=== PATIENT | male | born 1980 | race Caucasian/White ===

== ENCOUNTER 2017-10-26 14:43 | Outpatient (CLI) | payer OTHER ==
--- NOTE | 2017-10-26 16:08 | RAD ---
RIGHT SHOULDER 3 VIEWS: HISTORY: Right shoulder pain. COMPARISON: 11/05/16. FINDINGS: Chronic separation of the right shoulder is similar in appearance to the prior study. Heterotopic os sification and dystrophic calcification inferior to the distal clavicle is also stable. Glenohumeral alignment is maintained. 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 No acute osseous abnormalities are otherwise demonstrated. POS: [facility]
== END 2017-10-26 14:44 | disposition home or self-care (01) ==
LOC: RAD-FRANK 14:43
PROVIDERS: ATTEND Nurse Practitioner Family
DX: M25.511 Pain in right shoulder (principal); M61.511 Other ossification of muscle, right shoulder

== ENCOUNTER 2019-01-10 14:15 | Emergency (ER) | payer OTHER, SELFPAY ==
[2019-01-10] MEDS ORDERED: Ketorolac Tromethamine 60 MG/2 ML VIAL ONE (14:52)
[2019-01-10 14:53] LABS: Bilirubin Negative (Negative); Blood, Urine Moderate (Negative); Clarity Cloudy (Clear); Glucose, Urine (Dipstick) Negative (Negative); Leukocyte Large (Negative); Nitrite Negative (Negative); Protein, Urine (Dipstick) 30 mg/dL (Neg-Trace); pH, Urine 6.5 (5.0-9.0)
[2019-01-10 14:54] LABS: Specific Gravity, Urine 1.024 (1.002-1.036)
[2019-01-10 14:56] LABS: Bacteria/HPF 2+ HPF (None Seen); Squamous Epithelial 0-3 HPF (0-3)
[2019-01-10] MEDS ORDERED: cefTRIAXone\\ROCEPHIN 2 GM VIAL ONE (15:23)
[2019-01-10] MEDS ORDERED: Sodium Chloride 0.9% 100 ML ONE (15:24)
[2019-01-10] MEDS ORDERED: Sulfameth/Trimethoprim DS 800-160mg TAB ONE (15:28)
== END 2019-01-10 16:24 | disposition home or self-care (01) ==
LOC: SCSER 14:15
DX: N10 Acute pyelonephritis (principal); F17.210 Nicotine dependence, cigarettes, uncomplicated
CPT/HCPCS: 81003; 81015; 87086; 96365; 96372; J0696; J1885; J3490

== ENCOUNTER 2019-02-02 23:12 | Emergency (ER) | payer OTHER, SELFPAY ==
--- NOTE | 2019-02-03 00:13 | RAD ---
3 views lumbar spine: 02/02/2019 COMPARISON: 11/26/2015 HISTORY: Low back pain, trauma FINDINGS: No fracture or dislocation. Lumbar vertebral body height and alignment is normal. No destini listhesis or retrolisthesis. IMPRESSION: No acute findings.
--- NOTE | 2019-02-03 00:14 | RAD ---
2 views thoracic spine: 02/02/2019 HISTORY: Injury, trauma, pain FINDINGS: Thoracic pedicles are intact on frontal imaging. Lateral exam demonstrates normal vertebral body height and alignment. No acute fracture. Pression: No acute findings.
== END 2019-02-03 00:22 | disposition home or self-care (01) ==
LOC: SCSER 23:12
DX: S39.012A Strain of muscle, fascia and tendon of lower back, initial encounter (principal); S29.012A Strain of muscle and tendon of back wall of thorax, initial encounter; F17.210 Nicotine dependence, cigarettes, uncomplicated; V49.9XXA Car occupant (driver) (passenger) injured in unspecified traffic accident, initial encounter
CPT/HCPCS: 72072; 72100; 99406

== ENCOUNTER 2019-02-13 05:51 | Emergency (ER) | payer OTHER ==
[2019-02-13] MEDS ORDERED: Ketorolac Tromethamine 60 MG/2 ML VIAL ONE (06:39)
== END 2019-02-13 06:59 | disposition home or self-care (01) ==
LOC: SCSER 05:51
DX: M62.830 Muscle spasm of back (principal); F17.210 Nicotine dependence, cigarettes, uncomplicated; V89.2XXA Person injured in unspecified motor-vehicle accident, traffic, initial encounter
CPT/HCPCS: 96372; J1885

== ENCOUNTER 2019-05-10 23:51 | Emergency (ER) | payer OTHER, SELFPAY ==
[2019-05-11] MEDS ORDERED: predniSONE 20 MG TAB ONE (00:05)
[2019-05-11] MEDS ORDERED: diphenhydrAMINE 25 MG CAP ONE (00:22)
== END 2019-05-11 01:25 | disposition home or self-care (01) ==
LOC: SCSER 23:51
DX: L23.7 Allergic contact dermatitis due to plants, except food (principal); F17.210 Nicotine dependence, cigarettes, uncomplicated
CPT/HCPCS: 99282; J7512; Q0163

== ENCOUNTER 2019-11-06 15:51 | Emergency (ER) | payer SELFPAY ==
[2019-11-06] MEDS ORDERED: Ketorolac Tromethamine 30 MG/ML VIAL ONE (17:11)
== END 2019-11-06 19:33 | disposition home or self-care (01) ==
LOC: ERS 15:51
DX: B34.9 Viral infection, unspecified (principal)
CPT/HCPCS: 87081; 87430; 87804; 99284; J1885

== ENCOUNTER 2021-08-12 22:29 | Emergency (ER) | payer SELFPAY ==
[2021-08-12 23:20] LABS: #Basophils 0.1 thou/uL (0.0-0.2); #Eosinphils 0.5 thou/uL (0.0-0.7); #Lymphocytes 2.4 thou/uL (1.20-3.40); #Monocytes 0.8 thou/uL (0.11-0.59); #Neutrophils 3.3 thou/uL (1.40-6.50); %Eosinophils 6.6 % (0.0-10.0); %Lymphocytes 34.5 % (21.0-51.0); %Monocytes 10.6 % (0.0-10.0); %Neutrophils 47.3 % (42.0-75.0); Hemoglobin 16.5 g/dL (14.0-18.0); Mean Corpuscular Hemoglobin 31.8 pg (27.0-31.0); Mean Corpuscular Volume 93.6 fL (78.0-98.0); Mean Platelet Volume 7.2 fL (7.4-10.4); Platelet Count 241 thou/uL (130-400); Red Blood Cell (RBC) Count 5.17 mill/uL (4.70-6.10); White Blood Cell (WBC) Count 7.1 thou/uL (4.8-10.8)
[2021-08-12 23:37] LABS: ALT (SGPT) 36 U/L (8-55); AST (SGOT) 22 U/L (5-34); Albumin 3.9 g/dL (3.5-5.0); Alkaline Phosphatase 94 U/L (40-110); Anion Gap 11 mmol/L (10-20); BUN (Urea Nitrogen) 17 mg/dL (8.9-20.6); Bilirubin, Total 0.4 mg/dL (0.2-1.2); Calc. Creatinine Clearance 0 mL/min (70-130); Calcium 9.7 mg/dL (7.8-10.44); Carbon Dioxide 29 mmol/L (22-29); Chloride 104 mmol/L (98-107); Globulin 2.8 g/dL (2.4-3.5); Glucose 72 mg/dL (70-105); Lipase 54 U/L (8-78); Protein, Total 6.7 g/dL (6.0-8.3); Sodium 140 mmol/L (136-145)
[2021-08-13] MEDS ORDERED: Famotidine 20 MG TAB ONE (00:08)
== END 2021-08-13 00:30 | disposition home or self-care (01) ==
LOC: ERS 22:29
DX: R07.89 Other chest pain (principal); G47.9 Sleep disorder, unspecified; I10 Essential (primary) hypertension
CPT/HCPCS: 36415; 71045; 80053; 83690; 84484; 85025; 93005

== ENCOUNTER 2021-12-27 14:55 | Inpatient (IN) | payer SELFPAY ==
[2021-12-27] MEDS ORDERED: Piperacillin/Tazobactam 3.375 GM VIAL ONE (17:18)
[2021-12-27] MEDS ORDERED: Ketorolac Tromethamine 30 MG/ML VIAL ONE (17:18)
[2021-12-27] MEDS ORDERED: Ondansetron PF 4 MG/2 ML Vial ONE (17:32)
[2021-12-27 17:40] LABS: #Eosinphils 0.4 thou/uL (0.0-0.7); #Lymphocytes 1.3 thou/uL (1.20-3.40); #Monocytes 0.8 thou/uL (0.11-0.59); #Neutrophils 7.7 thou/uL (1.40-6.50); %Basophils 0.4 % (0.0-1.0); %Eosinophils 4.1 % (0.0-10.0); %Monocytes 7.6 % (0.0-10.0); %Neutrophils 74.9 % (42.0-75.0); Hemoglobin 16.4 g/dL (14.0-18.0); Mean Corpuscular HGB CONC 33.4 g/dL (32.0-36.0); Mean Corpuscular Hemoglobin 31.1 pg (27.0-31.0); Mean Corpuscular Volume 93.1 fL (78.0-98.0); Mean Platelet Volume 7.4 fL (7.4-10.4); Platelet Count 223 thou/uL (130-400); RBC Distribution Width 11.9 % (11.5-14.5); Red Blood Cell (RBC) Count 5.26 mill/uL (4.70-6.10); White Blood Cell (WBC) Count 10.2 thou/uL (4.8-10.8)
[2021-12-27 18:01] LABS: ALT (SGPT) 31 U/L (8-55); AST (SGOT) 19 U/L (5-34); Alkaline Phosphatase 79 U/L (40-110); Anion Gap 10 mmol/L (10-20); BUN (Urea Nitrogen) 18 mg/dL (8.9-20.6); Bilirubin, Total 0.8 mg/dL (0.2-1.2); Calc. Creatinine Clearance 0 mL/min (70-130); Calcium 9.2 mg/dL (7.8-10.44); Carbon Dioxide 28 mmol/L (22-29); Chloride 105 mmol/L (98-107); Glucose 83 mg/dL (70-105); Potassium 4.3 mmol/L (3.5-5.1); Sodium 139 mmol/L (136-145)
[2021-12-27] MEDS ORDERED: Morphine 4 MG/ML VIAL ONE ×2 (18:09→18:55)
[2021-12-27] MEDS ORDERED: VANCOMYCIN 2 GRAM/400 ML BAG 2 GM in Premix Bag 1 BAG IVPB SCH (18:15)
[2021-12-27 19:31] LABS: SARS-CoV-2 NAA Rapid Test Not Detected (NotDetected)
[2021-12-27] MEDS ORDERED: Aripiprazole 2 MG TAB PO SCH (19:45)
[2021-12-27] MEDS: hydrOXYzine 10 MG TAB PO SCH (22:28)
[2021-12-27] MEDS: Piperacillin/Tazobactam 3.375 GM in Sodium Chloride 0.9% 100 ML IVPB SCH (22:29)
[2021-12-27] MEDS ORDERED: Ondansetron PF 4 MG/2 ML Vial IVP PRN (22:30)
[2021-12-27] MEDS ORDERED: Ondansetron ODT 4 MG TAB SL PRN (22:30)
[2021-12-27] MEDS ORDERED: Acetaminophen 325 MG TAB PO PRN (22:30)
[2021-12-27] MEDS: Dextrose 5 % And 0.9 % NaCl 1,000 ML IV SCH (22:33)
[2021-12-27 23:10] VITALS: BMI 30.7
[2021-12-28] MEDS: Morphine 4 MG/ML VIAL SLOW IVP PRN ×2 (02:09→05:40)
[2021-12-28] MEDS: Piperacillin/Tazobactam 3.375 GM in Sodium Chloride 0.9% 100 ML IVPB SCH (05:40)
[2021-12-28] MEDS: Dextrose 5 % And 0.9 % NaCl 1,000 ML IV SCH ×2 (05:59→16:10)
[2021-12-28] MEDS ORDERED: Fentanyl 100 MCG/2 ML VIAL ONE ×2 (06:44→09:03)
[2021-12-28] MEDS ORDERED: Bacitracin Zinc Ointment 30 gm TUBE ONE (07:03)
[2021-12-28] MEDS ORDERED: Bupivacaine PF 0.5% 30 ML VIAL ONE (07:03)
[2021-12-28] MEDS ORDERED: Neomycin-Polymyxin 1 ML AMP ONE (07:03)
[2021-12-28] MEDS ORDERED: Famotidine/PF 20 mg/2ml Vial ONE (07:52)
[2021-12-28] MEDS ORDERED: Dexamethasone 20 MG/5 ML VIAL ONE (07:55)
[2021-12-28] MEDS ORDERED: PROPOFOL 200 MG/20 ML VIAL ONE (07:55)
[2021-12-28] MEDS ORDERED: Ondansetron PF 4 MG/2 ML Vial ONE (07:55)
[2021-12-28] MEDS ORDERED: PHENYLEPHRINE-NS 100 MCG/ML 10 ML SYRINGE ONE (07:55)
[2021-12-28] MEDS ORDERED: Lidocaine 1% PF 5 ML VIAL ONE (07:55)
[2021-12-28] MEDS ORDERED: Ondansetron HCl/PF 4 MG/2 ML Vial IVP PRN (08:50)
[2021-12-28] MEDS ORDERED: HYDROmorphone 2 MG/ML VIAL SLOW IVP PRN (08:50)
[2021-12-28] MEDS ORDERED: Promethazine HCl 25 MG/ML VIAL IM PRN (08:50)
[2021-12-28] MEDS ORDERED: Promethazine HCl 25 MG/ML VIAL IVPB PRN (08:50)
[2021-12-28] MEDS ORDERED: hydrOXYzine 25 MG TAB PO PRN (09:03)
[2021-12-28] MEDS ORDERED: Meperidine HCl/PF 25 MG/ML VIAL IM PRN (09:04)
[2021-12-28] MEDS: hydrOXYzine 10 MG TAB PO SCH ×2 (10:21→21:16)
[2021-12-28] MEDS: Vancomycin 1 GM in Premix Bag 1 BAG IVPB SCH (10:45)
[2021-12-28] MEDS: GENTAMICIN SULFATE IJ SCH (13:39)
[2021-12-28] MEDS: ADMIXTURE FEE IJ SCH (13:39)
[2021-12-28] MEDS: Gabapentin 100 MG CAP PO SCH ×2 (13:40→20:59)
[2021-12-28] MEDS ORDERED: Gentamicin 80 MG/2 ML VIAL IM SCH (14:00)
[2021-12-28] MEDS: Bupropion 100 MG SR TAB PO SCH (20:59)
[2021-12-28] MEDS: Aripiprazole 2 MG TAB PO SCH (21:01)
[2021-12-28] MEDS: Ketorolac Tromethamine 30 MG/ML VIAL IVP PRN (21:08)
[2021-12-28] MEDS: Gentamicin Sulfate 80 MG in Premix Bag 1 BAG IVPB SCH (23:41)
[2021-12-29] MEDS: Vancomycin 1 GM in Premix Bag 1 BAG IVPB SCH ×3 (00:30→22:46)
[2021-12-29] MEDS: ADMIXTURE FEE IJ SCH (01:43)
[2021-12-29] MEDS: GENTAMICIN SULFATE IJ SCH (01:43)
[2021-12-29] MEDS: Dextrose 5 % And 0.9 % NaCl 1,000 ML IV SCH ×3 (02:51→22:20)
[2021-12-29] MEDS: Gabapentin 100 MG CAP PO SCH ×3 (08:43→20:49)
[2021-12-29] MEDS: Gentamicin Sulfate 80 MG in Premix Bag 1 BAG IVPB SCH ×2 (08:44→15:28)
[2021-12-29] MEDS: Bupropion 100 MG SR TAB PO SCH ×2 (08:44→20:49)
[2021-12-29] MEDS: hydrOXYzine 10 MG TAB PO SCH ×2 (08:52→20:49)
[2021-12-29] MEDS: Ketorolac Tromethamine 30 MG/ML VIAL IVP PRN ×2 (15:28→21:05)
[2021-12-29] MEDS: Aripiprazole 2 MG TAB PO SCH (20:49)
[2021-12-30] MEDS: Gentamicin Sulfate 80 MG in Premix Bag 1 BAG IVPB SCH ×3 (01:24→14:39)
[2021-12-30 08:02] LABS: #Basophils 0.1 thou/uL (0.0-0.2); #Eosinphils 0.3 thou/uL (0.0-0.7); #Lymphocytes 1.5 thou/uL (1.20-3.40); #Monocytes 0.6 thou/uL (0.11-0.59); #Neutrophils 8.7 thou/uL (1.40-6.50); %Basophils 0.7 % (0.0-1.0); %Lymphocytes 13.1 % (21.0-51.0); %Neutrophils 78.2 % (42.0-75.0); Hemoglobin 14.8 g/dL (14.0-18.0); Mean Corpuscular HGB CONC 34.2 g/dL (32.0-36.0); Mean Corpuscular Hemoglobin 32.5 pg (27.0-31.0); Mean Corpuscular Volume 94.9 fL (78.0-98.0); Mean Platelet Volume 7.2 fL (7.4-10.4); Platelet Count 203 thou/uL (130-400); RBC Distribution Width 11.7 % (11.5-14.5); Red Blood Cell (RBC) Count 4.57 mill/uL (4.70-6.10); White Blood Cell (WBC) Count 11.1 thou/uL (4.8-10.8)
[2021-12-30] MEDS: Bupropion 100 MG SR TAB PO SCH ×2 (08:20→20:11)
[2021-12-30] MEDS: Gabapentin 100 MG CAP PO SCH ×3 (08:20→20:11)
[2021-12-30] MEDS: hydrOXYzine 10 MG TAB PO SCH ×2 (08:25→20:11)
[2021-12-30] MEDS: Dextrose 5 % And 0.9 % NaCl 1,000 ML IV SCH ×2 (08:27→17:12)
[2021-12-30] MEDS: Vancomycin 1 GM in Premix Bag 1 BAG IVPB SCH ×2 (11:28→23:17)
[2021-12-30] MEDS: Ketorolac Tromethamine 30 MG/ML VIAL IVP PRN (11:28)
[2021-12-30] MEDS: Aripiprazole 2 MG TAB PO SCH (20:12)
[2021-12-30] MEDS: Morphine 4 MG/ML VIAL SLOW IVP PRN (21:26)
[2021-12-30] MEDS: Ketorolac Tromethamine 30 MG/ML VIAL IVP SCH (23:16)
[2021-12-31] MEDS: Gentamicin Sulfate 80 MG in Premix Bag 1 BAG IVPB SCH ×2 (00:37→08:40)
[2021-12-31] MEDS: Ketorolac Tromethamine 30 MG/ML VIAL IVP SCH ×4 (04:45→21:19)
[2021-12-31 05:35] LABS: #Eosinphils 0.6 thou/uL (0.0-0.7); #Lymphocytes 1.6 thou/uL (1.20-3.40); #Monocytes 0.6 thou/uL (0.11-0.59); #Neutrophils 4.3 thou/uL (1.40-6.50); %Basophils 0.3 % (0.0-1.0); %Lymphocytes 22.1 % (21.0-51.0); %Monocytes 8.2 % (0.0-10.0); %Neutrophils 60.4 % (42.0-75.0); Hemoglobin 14.4 g/dL (14.0-18.0); Mean Corpuscular HGB CONC 33.1 g/dL (32.0-36.0); Mean Corpuscular Hemoglobin 30.9 pg (27.0-31.0); Mean Corpuscular Volume 93.4 fL (78.0-98.0); Mean Platelet Volume 7.4 fL (7.4-10.4); Platelet Count 234 thou/uL (130-400); RBC Distribution Width 11.7 % (11.5-14.5); Red Blood Cell (RBC) Count 4.65 mill/uL (4.70-6.10); White Blood Cell (WBC) Count 7.1 thou/uL (4.8-10.8)
[2021-12-31] MEDS: Dextrose 5 % And 0.9 % NaCl 1,000 ML IV SCH ×3 (07:27→23:56)
[2021-12-31] MEDS: Gabapentin 100 MG CAP PO SCH ×3 (08:46→21:18)
[2021-12-31] MEDS: Bupropion 100 MG SR TAB PO SCH ×2 (08:47→21:18)
[2021-12-31] MEDS: hydrOXYzine 10 MG TAB PO SCH ×2 (08:47→21:20)
[2021-12-31] MEDS: Morphine 4 MG/ML VIAL SLOW IVP PRN (10:32)
[2021-12-31] MEDS: Vancomycin 1 GM in Premix Bag 1 BAG IVPB SCH (12:16)
[2021-12-31] MEDS ORDERED: Meperidine HCl/PF 25 MG/ML VIAL FS PRN (12:41)
[2021-12-31] MEDS ORDERED: Promethazine HCl 25 MG/ML VIAL FS PRN (12:43)
[2021-12-31] MEDS: Cefepime 2 GM in Sodium Chloride 0.9% 100 ML IVPB SCH (17:44)
[2021-12-31] MEDS: Aripiprazole 2 MG TAB PO SCH (21:20)
[2022-01-01] MEDS: Cefepime 2 GM in Sodium Chloride 0.9% 100 ML IVPB SCH ×2 (03:55→17:05)
[2022-01-01] MEDS: Morphine 4 MG/ML VIAL SLOW IVP PRN ×2 (04:01→12:07)
[2022-01-01] MEDS: Gabapentin 100 MG CAP PO SCH ×3 (08:38→21:15)
[2022-01-01] MEDS: Bupropion 100 MG SR TAB PO SCH ×2 (08:39→21:15)
[2022-01-01] MEDS: hydrOXYzine 10 MG TAB PO SCH ×2 (08:39→21:15)
[2022-01-01] MEDS: Dextrose 5 % And 0.9 % NaCl 1,000 ML IV SCH ×2 (08:41→21:22)
[2022-01-01] MEDS ORDERED: Amlodipine 5 MG TAB PO SCH (14:30)
[2022-01-01] MEDS: Aripiprazole 2 MG TAB PO SCH (21:15)
[2022-01-02] MEDS ORDERED: hydrALAZINE 20 MG/ML VIAL SLOW IVP PRN (00:08)
[2022-01-02] MEDS: Cefepime 2 GM in Sodium Chloride 0.9% 100 ML IVPB SCH ×2 (03:50→15:40)
[2022-01-02] MEDS: Dextrose 5 % And 0.9 % NaCl 1,000 ML IV SCH ×2 (07:04→15:41)
[2022-01-02] MEDS ORDERED: Fentanyl 100 MCG/2 ML VIAL ONE ×2 (07:22→09:27)
[2022-01-02] MEDS ORDERED: Bacitracin Zinc Ointment 30 gm TUBE ONE (07:26)
[2022-01-02] MEDS ORDERED: Neomycin-Polymyxin 1 ML AMP ONE (07:26)
[2022-01-02] MEDS ORDERED: Thrombin 5000 UNITS/5 ML VIAL ONE (07:26)
[2022-01-02] MEDS ORDERED: Bupivacaine PF 0.5% 30 ML VIAL ONE (07:27)
[2022-01-02] MEDS ORDERED: Dexamethasone 20 MG/5 ML VIAL ONE (08:10)
[2022-01-02] MEDS ORDERED: Lidocaine 1% PF 5 ML VIAL ONE (08:10)
[2022-01-02] MEDS ORDERED: PROPOFOL 200 MG/20 ML VIAL ONE (08:10)
[2022-01-02] MEDS ORDERED: Ondansetron PF 4 MG/2 ML Vial ONE (08:10)
[2022-01-02] MEDS ORDERED: PHENYLEPHRINE-NS 100 MCG/ML 10 ML SYRINGE ONE (08:10)
[2022-01-02] MEDS ORDERED: ePHEDrine 50 MG/ML VIAL ONE (08:10)
[2022-01-02] MEDS: Bupropion 100 MG SR TAB PO SCH ×2 (09:20→20:24)
[2022-01-02] MEDS: Amlodipine 5 MG TAB PO SCH (09:20)
[2022-01-02] MEDS: Gabapentin 100 MG CAP PO SCH ×3 (09:21→20:24)
[2022-01-02] MEDS: Saccharomyces boulardii 250 MG CAP PO SCH (09:21)
[2022-01-02] MEDS: hydrOXYzine 10 MG TAB PO SCH ×2 (09:21→20:24)
[2022-01-02] MEDS: Aripiprazole 2 MG TAB PO SCH (20:24)
[2022-01-03] MEDS: Morphine 4 MG/ML VIAL SLOW IVP PRN ×2 (02:22→15:48)
[2022-01-03] MEDS: Cefepime 2 GM in Sodium Chloride 0.9% 100 ML IVPB SCH ×2 (04:20→14:28)
[2022-01-03] MEDS: Saccharomyces boulardii 250 MG CAP PO SCH (08:30)
[2022-01-03] MEDS: Gabapentin 100 MG CAP PO SCH ×2 (08:30→14:26)
[2022-01-03] MEDS: Bupropion 100 MG SR TAB PO SCH (08:30)
[2022-01-03] MEDS: hydrOXYzine 10 MG TAB PO SCH (08:30)
[2022-01-03] MEDS: Amlodipine 5 MG TAB PO SCH (08:31)
[2022-01-03] MEDS: Dextrose 5 % And 0.9 % NaCl 1,000 ML IV SCH (08:32)
[2022-01-03 12:43] LABS: SARS-CoV-2 PCR by NAA Not Detected (NotDetected)
[2022-01-03 15:55] VITALS: BP 160/76; TEMP 98.3
== END 2022-01-03 18:30 | disposition home or self-care (01) | DRG 506 ==
LOC: ERS 14:55 → ERHOLD 19:15 → SURG B 21:31
PROVIDERS: ADMIT Orthopaedic Surgery Hand Surgery; ATTEND Orthopaedic Surgery Hand Surgery
PROC: 0R9U0ZZ Drainage of Right Metacarpophalangeal Joint, Open Approach (ICD-10-PCS; principal; 2021-12-28)
PROC: 0RBU0ZZ Excision of Right Metacarpophalangeal Joint, Open Approach (ICD-10-PCS; 2021-12-28)
PROC: 0LB70ZZ Excision of Right Hand Tendon, Open Approach (ICD-10-PCS; 2022-01-02)
PROC: 0RBU0ZZ Excision of Right Metacarpophalangeal Joint, Open Approach (ICD-10-PCS; 2022-01-02)
DX: M00.9 Pyogenic arthritis, unspecified (principal); L02.511 Cutaneous abscess of right hand; L03.113 Cellulitis of right upper limb; F41.9 Anxiety disorder, unspecified; F20.9 Schizophrenia, unspecified; Z20.822 Contact with and (suspected) exposure to COVID-19; F32.A Depression, unspecified; I12.9 Hypertensive chronic kidney disease with stage 1 through stage 4 chronic kidney disease, or unspecified chronic kidney disease; N18.2 Chronic kidney disease, stage 2 (mild); E66.9 Obesity, unspecified; Z68.30 Body mass index [BMI] 30.0-30.9, adult
CPT/HCPCS: 36415; 80053; 85025; 87040; 87070; 87077; 87205; 96374; 96375; 96376; J0692; J1100; J1580; J1885; J2270; J2405; J2543; J2704; J3010; J3370; J3490; J7042; S0020; S0028; U0002; U0003; U0005